=== PATIENT | male | born 1970 | race African-American/Black ===

== ENCOUNTER 2018-08-05 11:38 | Emergency (ER) | payer MEDICARE, MEDICAID ==
[~2018-08-05] VITALS: Ht 180.3 cm; Wt 73.5 kg
[2018-08-05] MEDS ORDERED: UNOBMED (11:45)
--- NOTE | 2018-08-05 12:01 | Emergency Room Report ---
History of Present Illness General Chief Complaint: Chest Pain Source: Patient Present Illness HPI 47-year-old male with history of HIV, last CD4 count greater than 500, as well as a [id number] tobacco use history presents with intermittent chest pain since October, he reports he was supposed to get a cardiac stress test ordered by his primary physician last week but he missed his appointment. He reports the pain is left-sided sharp, radiates down his left arm, and reports she's had multiple bouts of it, last episode was this morning so he came in for an evaluation, he reports the duration of the pain was about 5 minutes. He also reports he has associated shortness of breath when he gets these bouts of pain. Fevers, vomiting, diarrhea, urinary symptoms, skin rashes, any other complaints.he can think of no obvious alleviating or exacerbating factors, and reports the pain is nonexertional. Allergies: Coded Allergies: PROCHLORPERAZINE (Verified Allergy, Unknown, 08/05/18) Patient History Past Medical History: see triage record Reviewed Nursing Documentation: PMH: Agreed; PSxH: Agreed Nursing Documentation-PMH Past Medical History: No History, Except For Review of Systems All Other Systems: negative except mentioned in HPI Physical Exam Vital Signs Date Time Temp Pulse Resp B/P (MAP) Pulse Ox O2 Delivery O2 Flow Rate FiO2 08/05/18 11:43 97.3 83 16 118/77 97 Room Air 97.3 Sp02 EP Interpretation: reviewed, normal General Appearance: no apparent distress, alert, non-toxic Head: normocephalic Eyes: bilateral eye normal inspection, bilateral eye PERRL, bilateral eye EOMI ENT: normal ENT inspection, hearing grossly normal, normal pharynx, no angioedema, normal voice, moist mucus membranes Neck: normal inspection, full range of motion, supple, supple/symm/no masses Respiratory: chest non-tender, lungs clear, normal breath sounds, no rhonchi, no respiratory distress, no retraction, no accessory muscle use, chest symmetrical, palpation of chest normal Cardiovascular #1: normal peripheral pulses, regular rate, rhythm, no edema, no gallop, no JVD, no murmur, no rub Cardiovascular #2: 2+ radial (R), 2+ radial (L) Gastrointestinal: normal inspection, non tender, soft, no mass, no guarding, no rebound Rectal: deferred Genitourinary: normal inspection, no CVA tenderness Musculoskeletal: back normal, gait/station normal, normal range of motion, non- tender, no calf tenderness Neurologic: alert, responsive, grain operator III-XII nml as tested, motor strength/tone normal, sensory intact, speech normal Psychiatric: judgement/insight normal, memory normal, mood/affect normal, no suicidal/homicidal ideation Skin: normal color, no rash, warm/dry, normal turgor Lymphatic: no adenopathy Medical Decision Making Diagnostic Impression: Primary Impression: Chest pain ER Course Patient with atypical pain, symptoms always last a few seconds to a few minutes , less than 5 minutes always, for many months, since the beginning of this year. Primary care doctor is associated with [facility] and had him set up to get an outpatient stress test last week, but patient missed the stress test, today he is pain-free again, but his symptoms happened just prior to arrival. No obvious minor abrasion to symptoms, and other than tobacco use and HIV history he has no risk factors for acute coronary syndrome. I offered him the option of staying overnight for admission and possible stress test, but he reported that he felt better and wanted to just go home and get outpatient stress test, he would call [facility] to reschedule this week, I told him that should be fine and if he has any difficulty with doing that to call his primary care doctor to ensure that he could get this done. I also explained to him he is to return if there is any change in the nature of his pain, it last longer than it normally does, has new symptoms such as shortness of breath, vomiting, sweating or any new symptoms. Stands and agrees. EKG Diagnostic Results EKG Time: 11:54 EP Interpretation: no st-t changes, no twi's Rate: normal Rhythm: NSR ST Segments: no acute changes Rhythm Strip Diag. Results Rhythm Strip Time: 12:00 EP Interpretation: yes Rate: 86 Rhythm: NSR, no PVC's, no ectopy Chest X-Ray Diagnostic Results Chest X-Ray Diagnostic Results : Chest X-Ray Ordered: Yes # of Views/Limited/Complete: 1 View Indication: Chest Pain EP Interpretation: Yes Interpretation: no consolidation, no effusion, no pneumothorax, no acute cardiopulmonary disease Impression: No acute disease Electronically Signed by: Harrison Forbes MD Last Vital Signs Date Time Temp Pulse Resp B/P (MAP) Pulse Ox O2 Delivery O2 Flow Rate FiO2 08/05/18 11:43 97.3 83 16 118/77 97 Room Air 97.3 Disposition: HOME, SELF-CARE Condition: Stable HRARISON FORBES M.D Aug 05, 2018 12:01
[2018-08-05 12:15] VITALS: BP 120/77
[2018-08-05 12:50] LABS: EOSINOPHILS % (AUTO) 2.6 % (0.0-3.0); HEMATOCRIT 41.7 % (42.0-52.0); HEMOGLOBIN 14.5 G/DL (14.2-18.0); LYMPHOCYTES % (AUTO) 29.3 % (20.0-45.0); MEAN CORPUSCULAR VOLUME 89 FL (80-99); MONOCYTES % (AUTO) 5.7 % (1.0-10.0); NEUTROPHILS % (AUTO) 61.4 % (45.0-75.0); PLATELET COUNT 247 K/UL (150-450); RED BLOOD COUNT 4.68 M/UL (4.70-6.10); RED CELL DISTRIBUTION WIDTH 11.1 % (11.6-14.8); WHITE BLOOD COUNT 6.4 K/UL (4.8-10.8)
[2018-08-05 13:04] LABS: ANION GAP 9 mmol/L (5-15); BLOOD UREA NITROGEN 9 mg/dL (7-18); CARBON DIOXIDE 24 MMOL/L (21-32); CHLORIDE 107 MMOL/L (98-107); CREATININE 0.8 MG/DL (0.55-1.30); POTASSIUM 4.3 MMOL/L (3.5-5.1); SODIUM 140 MMOL/L (136-145)
[2018-08-05 13:15] LABS: ALANINE AMINOTRANSFERASE 19 U/L (12-78); ALBUMIN 3.7 G/DL (3.4-5.0); ALKALINE PHOSPHATASE 82 U/L (46-116); ASPARTATE AMINO TRANSFERASE 16 U/L (15-37); BILIRUBIN,TOTAL 0.2 MG/DL (0.2-1.0)
--- NOTE | 2018-08-05 13:37 | Diagnostic Imaging Report ---
Indication: Chest pain Comparison: None A single view chest radiograph was obtained. Findings: Cardiomediastinal appearance is within normal limits for age. The lungs are clear. Pulmonary vascularity is appropriate. The diaphragmatic contour is smooth and costophrenic angles are sharp. No pleural effusions are identified. The bones are unremarkable. Impression: No acute findings
[2018-08-05 14:55] VITALS: BP 120/77
--- NOTE | 2018-08-10 12:25 | Cardiology Report ---
APPROVED REPORT EKG Measurement Heart [id number] Normal sinus rhythm Minimal voltage criteria for LVH, may be normal variant Nonspecific ST abnormality Abnormal ECG
== END 2018-08-05 14:55 | disposition home or self-care (01) ==
LOC: EMR 12:21
DX: R07.9 Chest pain, unspecified (principal)
CPT/HCPCS: 36415; 71045; 80053; 83880; 84484; 85025; 85379; 93005; 99284

== ENCOUNTER 2019-08-07 18:01 | Emergency (ER) | payer MEDICARE, MEDICAID ==
[~2019-08-07] VITALS: Ht 180.3 cm; Wt 78.9 kg
[~2019-08-07 18:01] MED LIST: UNOBMED
[2019-08-07 18:08] VITALS: BP 151/91
--- NOTE | 2019-08-07 18:24 | NUR ---
ED Nurse Note: pt walked in to ED with PICC line access on left upper arm. per pt, had it on May for chemo therapy. [place] run [place] flush supplies. per pt "I just needs flush" AAo x4. respirations even and non-labored noted. will wait for the further order.
--- NOTE | 2019-08-07 18:43 | Emergency Room Report ---
History of Present Illness General Chief Complaint: General Complaint Source: Medical Record Present Illness HPI 48 YO male presents to the ED with hx of cancer requesting flushing of his picc line prior to his flight back home. pt. is receiving chemotherapy and radiation. He has appt. with on Saturday. Pt. reports running out of flushes and will not be able to receive more until he gets to his clinic on saturday. He denies pain, Denies previous malfunction or complication with his picc line. reports line has been in place since x 3 month and he is almost finished with his treatments on the Jul. Denies erythema, fevers, chills, d/c or any other symptoms. Allergies: Coded Allergies: PROCHLORPERAZINE (Verified Allergy, Unknown, 08/05/18) Patient History Past Medical History: see triage record Past Surgical History: none Pertinent Family History: none Reviewed Nursing Documentation: PMH: Agreed; PSxH: Agreed Nursing Documentation-PMH Past Medical History: No History, Except For Review of Systems All Other Systems: negative except mentioned in HPI Physical Exam Vital Signs Date Time Temp Pulse Resp B/P (MAP) Pulse Ox O2 Delivery O2 Flow Rate FiO2 08/07/19 18:08 98.2 81 18 151/91 (111) 98 Room Air Sp02 EP Interpretation: reviewed, normal General Appearance: no apparent distress, alert, GCS 15, non-toxic Head: normocephalic, atraumatic Eyes: bilateral eye normal inspection, bilateral eye PERRL ENT: hearing grossly normal, normal voice Neck: full range of motion Respiratory: lungs clear, normal breath sounds, speaking full sentences Cardiovascular #1: regular rate, rhythm, normal capillary refill Musculoskeletal: gait/station normal, normal range of motion, non-tender Neurologic: alert, oriented x3, responsive, motor strength/tone normal, sensory intact, speech normal, grossly normal Psychiatric: judgement/insight normal Skin: other - LEFT UE PICC line without evidence of infection. Lymphatic: no adenopathy Medical Decision Making PA Attestation Dr. Pruitt is my supervising Physician whom patient management has been discussed with. Diagnostic Impression: Primary Impression: PIC line (peripherally inserted central catheter) flush ER Course 48 YO male presents to the ED with hx of cancer requesting flushing of his picc line prior to his flight back home. pt. is receiving chemotherapy and radiation. He has appt. with on Saturday. Pt. reports running out of flushes and will not be able to receive more until he gets to his clinic on saturday. He denies pain, Denies previous malfunction or complication with his picc line. reports line has been in place since x 3 month and he is almost finished with his treatments on the Jul. Denies erythema, fevers, chills, d/c or any other symptoms. Ddx considered but are not limited to cellulitis/ picc line infection, picc line blockage, picc line malfunction just to name a few. Vital signs: are WNL, pt. is afebrile H&PE are most consistent with normal picc line, no evidence of infection or blockage, flushes easily by RN. ORDERS: none required at this time, the diagnosis is clinical ED INTERVENTIONS: -PICC line flush performed by RN. DISCHARGE: At this time pt. is stable for d/c to home. Will provide printed patient care instructions, and any necessary prescriptions. Care plan and follow up instructions have been discussed with the patient prior to discharge. Last Vital Signs Date Time Temp Pulse Resp B/P (MAP) Pulse Ox O2 Delivery O2 Flow Rate FiO2 08/07/19 18:08 81 18 Room Air 08/07/19 18:08 98.2 151/91 98 Disposition: HOME, SELF-CARE Condition: Stable Patient Instructions: PICC Home Guide Additional Instructions: Take medications as directed. Follow up with a Primary Care Provider in 3-5 days, even if your symptoms have resolved. --Please review list of primary care clinics, if you do not already have a primary care provider Return sooner to ED if new symptoms occur, or current symptoms become worse. - Please note that this Emergency Department Report was dictated using Mechiointeractive developer technology software, occasionally this can lead to erroneous entry secondary to interpretation by the dictation equipment. Nora Ramirez Aug 07, 2019 18:43
[2019-08-07 19:07] VITALS: BP 151/91
== END 2019-08-07 19:08 | disposition home or self-care (01) ==
LOC: EMR 18:50
DX: T82.898A Other specified complication of vascular prosthetic devices, implants and grafts, initial encounter (principal); Z88.8 Allergy status to other drugs, medicaments and biological substances; Y84.8 Other medical procedures as the cause of abnormal reaction of the patient, or of later complication, without mention of misadventure at the time of the procedure; Y92.9 Unspecified place or not applicable
CPT/HCPCS: 99282